=== PATIENT | male | born 1950 | race Caucasian/White ===

== ENCOUNTER 2017-03-21 05:42 | Emergency (ER) | payer MEDICARE, MEDICAID ==
[~2017-03-21] VITALS: Ht 182.9 cm; Wt 108.9 kg
[~2017-03-21 05:42] MED LIST: ADVAIR 500-501 EACH INH; ALBUTEROL SULF8.5 GM INH; AMLODIPINE BESYL5 MG ORAL; ASPIR 8181 MG; ASPIRIN EC81 MG ORAL; AZITHROMYCIN250 MG ORAL; BACTRIM DS TAB1 EAC1 ORAL; BENAZEPRIL HCL10 MG ORAL; CLINDAMYCIN HC300 MG ORAL; DITROPAN10 MG ORAL; FLUPHENAZIN5 MG/1 ML ORAL; FOLIC ACID1 MG ORAL; FUROSEMIDE40 MG ORAL; GLIMEPIRIDE1 MG ORAL; GLUCOPHAGE500 MG PO; IBUPROFEN200 MG ORAL; KLONOPIN0.5 MG ORAL; LATUDA80 MG PO; LEVOTHYROXINE25 MCG ORAL; LUVOX CR100 MG PO; METFORMIN HCL1000 M1 ORAL; METFORMIN HCL500 M1 ORAL; MIRALAX17 GM PO; NKM; OXYBUTYNIN CHLOR5 M2 PO; PAROXETINE HC12.5 MG ORAL; PAXIL10 MG ORAL; PRADAXA150 MG ORAL; PRO AIR HHN; PROMETHAZINE-D118 ML ORAL; QUETIAPINE FUMA25 MG ORAL; QVAR 80MCG ORA1 PUFF; QVAR7.3 GM INH; RANITIDINE HCL150 MG ORAL; SANTYL30 GM TOPIC; SANTYL30 GM TP; SEROQUEL XR200 MG ORAL; SEROQUEL100 MG ORAL; SEROQUEL200 MG ORAL; SILVADENE CREAM50 GM TOP; TOPIRAMATE25 MG PO; TRAMADOL HCL50 MG ORAL; TRAZODONE HCL100 MG PO; UNOBMED; ZOCOR20 MG ORAL
[2017-03-21 06:15] VITALS: BP 135/79
--- NOTE | 2017-03-21 06:23 | Emergency Room Report ---
History of Present Illness General Chief Complaint: Medication Refill Source: Patient Present Illness HPI Is a 66-year-old male with a history of schizophrenia multiple other medical problem including diabetes. He came in with chief complaint voices. He is taking Seroquel. He was just at [facility] 2 days ago for the same thing. Denies suicidal thoughts or homicidal thought. Nothing made it better nothing and nothing made it worse. No hallucination. Allergies: Coded Allergies: HALOPERIDOL (Verified Allergy, Intermediate, rash, 03/21/17) HALOPERIDOL LACTATE (Verified Allergy, Intermediate, rash, 03/21/17) MORPHINE (Verified Allergy, Intermediate, rash, 03/21/17) CEFTRIAXONE (Unverified Adverse Reaction, Unknown, 03/21/17) Pt stated having seizures Patient History Past Medical History: see triage record, old chart reviewed, DM, HTN, psych hx Past Surgical History: other Pertinent Family History: none Social History: Denies: smoking Immunizations: other Reviewed Nursing Documentation: PMH: Agreed, PSxH: Agreed Nursing Documentation-PMH Hx Cardiac Problems: Yes Hx Hypertension: Yes Hx Pacemaker: No Hx Asthma: No Hx COPD: Yes Hx Diabetes: Yes Hx Cancer: No Hx Gastrointestinal Problems: No Hx Dialysis: No Hx Neurological Problems: No Hx Cerebrovascular Accident: No Hx Seizures: No Review of Systems Eye: Denies: blurred vision, eye pain ENT: Denies: ear pain, nose congestion, throat swelling Respiratory: Denies: cough, shortness of breath Cardiovascular: Denies: chest pain, palpitations Gastrointestinal: Denies: abdominal pain, diarrhea, nausea, vomiting Musculoskeletal: Denies: back pain, joint pain Skin: Denies: rash Neurological: Denies: headache, numbness Endocrine: Denies: increased thirst, increased urine Hematologic/Lymphatic: Denies: easy bruising All Other Systems: negative except mentioned in HPI Physical Exam Vital Signs Date Time Temp Pulse Resp B/P Pulse Ox O2 Delivery O2 Flow Rate FiO2 03/21/17 06:13 97.5 71 16 142/81 99 Room Air vitals normal Sp02 EP Interpretation: reviewed, normal General Appearance: well appearing, no apparent distress, alert, obese Head: normocephalic, atraumatic Eyes: bilateral eye EOMI, bilateral eye PERRL ENT: hearing grossly normal, normal pharynx Neck: full range of motion, supple, no meningismus Respiratory: chest non-tender, lungs clear, normal breath sounds Cardiovascular #1: regular rate, rhythm, no murmur Gastrointestinal: normal bowel sounds, non tender, no mass, no organomegaly, no bruit, non-distended Musculoskeletal: back normal, normal range of motion, other - Patient in wheelchair Neurologic: alert, oriented x3 Psychiatric: mood/affect normal Skin: warm/dry Medical Decision Making Diagnostic Impression: Primary Impression: Schizophrenia Qualified Codes: F20.9 - Schizophrenia, unspecified ER Course Patient here with chief complaint of schizophrenia. He is stable at his baseline. No anterior for 5150. We'll discharge home. He's arty on Seroquel. He just at all his medication refill on March [address] [facility]. Last Vital Signs Date Time Temp Pulse Resp B/P Pulse Ox O2 Delivery O2 Flow Rate FiO2 03/21/17 06:13 97.5 71 16 142/81 99 Room Air Status: unchanged Disposition: HOME, SELF-CARE Condition: Stable Additional Instructions: Followup at mental health within a week. Return if symptom worsen. HAYDEE BEARD M.D. Mar 21, 2017 06:23
[2017-03-21 06:25] VITALS: BP 135/79
== END 2017-03-21 06:25 | disposition home or self-care (01) ==
LOC: EMR 06:23
DX: F20.9 Schizophrenia, unspecified (principal); I10 Essential (primary) hypertension; E11.9 Type 2 diabetes mellitus without complications; J44.9 Chronic obstructive pulmonary disease, unspecified
CPT/HCPCS: 99281

== ENCOUNTER 2017-08-03 16:41 | Inpatient (IN) | payer MEDICARE, MEDICAID ==
[~2017-08-03] VITALS: Ht 182.9 cm; Wt 95.7 kg
[2017-08-03] MEDS ORDERED: METFORMIN HCL500 M1 ORAL (17:00)
[2017-08-03] MEDS ORDERED: BENAZEPRIL HCL10 MG ORAL (17:00)
[2017-08-03] MEDS ORDERED: FOLIC ACID1 MG ORAL (17:00)
[2017-08-03] MEDS ORDERED: LEVOTHYROXINE25 MCG ORAL (17:00)
[2017-08-03] MEDS ORDERED: SIMVASTATIN20 MG ORAL (17:00)
[2017-08-03] MEDS ORDERED: ASPIRIN81 MG ORAL (17:00)
[2017-08-03] MEDS ORDERED: FUROSEMIDE40 MG ORAL (17:00)
[2017-08-03] MEDS ORDERED: AMLODIPINE BESYL5 MG ORAL (17:00)
--- NOTE | 2017-08-03 17:03 | Emergency Room Report ---
History of Present Illness General Chief Complaint: Wound Recheck/Suture Removal Source: Patient (Michaelle Batres) Present Illness HPI 67 YO Male presents to the ED from [facility] c/o 07/10 pain, swelling, and erythema of bilateral feet about dm foot ulcers progressive x 2 days. pt reports he normally has pain and open wounds but the past several days symptoms have significantly increased and erythema has evolved. pt. states he was seen by inspector canned food reconditioning today and told to go to the ED for evaluation. Pt. denies fevers, chills, trauma. pt. states he is ambulatory with a cane for short periods of time to get up and down stairs but primarily uses a wheelchair as all toes bilaterally have been amputated. pt. reports hx of DM, HTN, Schizophrenia and A-fib ( not on rate control medication, just ASA). Pt. also reports vertigo only when he lays flat x 4-5 days, denies CHARLES, trauma, neck pain , N/V. pt. reports fullness and pain in the right ear, otherwise denies recent URI. (Michaelle Batres) Allergies: Coded Allergies: HALOPERIDOL (Verified Allergy, Intermediate, rash, 03/21/17) HALOPERIDOL LACTATE (Verified Allergy, Intermediate, rash, 03/21/17) MORPHINE (Verified Allergy, Intermediate, rash, 03/21/17) CEFTRIAXONE (Unverified Adverse Reaction, Unknown, 03/21/17) Pt stated having seizures Patient History Past Medical History: see triage record, DM Past Surgical History: none Pertinent Family History: none Reviewed Nursing Documentation: PMH: Agreed, PSxH: Agreed (Michaelle Batres) Nursing Documentation-PMH Past Medical History: No History, Except For Hx Cardiac Problems: Yes Hx Hypertension: Yes Hx Pacemaker: No Hx Asthma: No Hx COPD: Yes Hx Diabetes: Yes Hx Cancer: No Hx Gastrointestinal Problems: No Hx Dialysis: No Hx Neurological Problems: No Hx Cerebrovascular Accident: No Hx Seizures: No (Michaelle Batres) Review of Systems All Other Systems: negative except mentioned in HPI (Michaelle Batres) Physical Exam Vital Signs Date Time Temp Pulse Resp B/P (MAP) Pulse Ox O2 Delivery O2 Flow Rate FiO2 08/03/17 16:46 97.9 96 18 114/61 98 Room Air Sp02 EP Interpretation: reviewed, normal General Appearance: no apparent distress, alert, GCS 15, non-toxic, Chronically Ill Eyes: bilateral eye normal inspection, bilateral eye PERRL, bilateral eye other - negative nystagmus ENT: hearing grossly normal, no angioedema, normal voice, other - cerumen impaction of the right canal Respiratory: chest non-tender, wheezing Cardiovascular #1: regular rate, rhythm, no edema, normal capillary refill Gastrointestinal: non tender, soft Musculoskeletal: inflammation - bilateral feet, erythema, increased temperature to palpation, other - bilateral amputation at the metatarsals , tender - bilateral plantar aspect and distal portion of feet. Neurologic: alert, oriented x3, responsive, motor strength/tone normal, sensory intact, speech normal, other - unable to illicit nystagmus Skin: warm/dry, palpation normal, well hydrated, other - bilateral plantar ulcers with surrounding erythema and increased temperature to palpation, the right plantar ulcer is 3x3cm and the left plantar ulcer is 2.5x2.5cm (Michaelle Batres P.AAna) Medical Decision Making PA Attestation Dr. Patel is my supervising Physician whom patient management has been discussed with. (Michaelle Batres P.AAna) Diagnostic Impression: Primary Impression: Diabetic ulcer of left foot Qualified Codes: E11.621 - Type 2 diabetes mellitus with foot ulcer; L97.423 - Non-pressure chronic ulcer of left heel and midfoot with necrosis of muscle Additional Impression: Diabetic foot ulcers Qualified Codes: E11.621 - Type 2 diabetes mellitus with foot ulcer; L97.515 - Non-pressure chronic ulcer of other part of right foot with muscle involvement without evidence of necrosis ER Course 67 YO Male presents [facility] the ED from [facility] c/o 07/10 pain, swelling, and erythema of bilateral feet about dm foot ulcers progressive x 2 days. pt reports he normally has pain and open wounds but the past several days symptoms have significantly increased and erythema has evolved. pt. states he was seen by inspector canned food reconditioning today and told to go to the ED for evaluation. Pt. denies fevers, chills, trauma. pt. states he is ambulatory with a cane for short periods of time to get up and down stairs but primarily uses a wheelchair as all toes bilaterally have been amputated. pt. reports hx of DM, HTN, Schizophrenia and A-fib ( not on rate control medication, just ASA). Pt. also reports vertigo only when he lays flat x 4-5 days, denies CHARLES, trauma, neck pain , N/V. pt. reports fullness and pain in the right ear, otherwise denies recent URI. Ddx considered but are not limited to cellulitis, osteomyelitis,, fracture, d/L , gout Vital signs: are WNL, pt. is afebrile H&PE are most consistent with cellulitis and hx of chronic DM foot ulcers suspicious for progression to osteomyelitis will do labs and imaging. Pt. has wheezes bilaterally. ORDERS: -CBC: no leukocytosis -CMP: unremarkable -Lactic Acid: WNL -Troponin: WNL- 0.00 -CK: WNL -CK-MB: WNL -ESR: elevated 48 -CRP : elevated 2.2 -Blood Cultures x 2: pending -PT/PTT: WNL - EK bpm, irreg-irreg- a-fib - no acute ST changes reviewed by Dr. Patel , his interpretation was scribed by JULISA Batres. - BILATERAL FOOT XRAYS, and CXR. ED INTERVENTIONS: -1mg Dilaudid IM -1 Liter NS - Albuterol HHN DISPOSITION: at this time pt. will be admitted to Dr. nakia Arguelles. bilateral cellulitis of DM foot ulcers. Dr. Arguelles agreed to admit the pt. and to continue pt. care management. Labs Test 08/03/17 18:08 White Blood Count 7.7 K/UL (4.8-10.8) Red Blood Count 4.70 M/UL (4.70-6.10) Hemoglobin 14.4 G/DL (14.2-18.0) Hematocrit 43.6 % (42.0-52.0) Mean Corpuscular Volume 93 FL (80-99) Mean Corpuscular Hemoglobin 30.7 PG (27.0-31.0) Mean Corpuscular Hemoglobin Concent 33.0 G/DL (32.0-36.0) Red Cell Distribution Width 12.9 % (11.6-14.8) Platelet Count 215 K/UL (150-450) Mean Platelet Volume 7.5 FL (6.5-10.1) Neutrophils (%) (Auto) 55.4 % (45.0-75.0) Lymphocytes (%) (Auto) 30.2 % (20.0-45.0) Monocytes (%) (Auto) 6.8 % (1.0-10.0) Eosinophils (%) (Auto) 6.0 % (0.0-3.0) Basophils (%) (Auto) 1.6 % (0.0-2.0) Erythrocyte Sedimentation Rate 48 MM/HR (0-20) Prothrombin Time 10.0 SEC (9.30-11.50) Prothromb Time International Ratio 1.0 (0.9-1.1) Activated Partial Thromboplast Time 31 SEC (23-33) Sodium Level 143 MMOL/L (136-145) Potassium Level 4.0 MMOL/L (3.5-5.1) Chloride Level 103 MMOL/L (98-107) Carbon Dioxide Level 29 MMOL/L (21-32) Anion Gap 11 mmol/L (5-15) Blood Urea Nitrogen 18 mg/dL (7-18) Creatinine 1.1 MG/DL (0.55-1.30) Estimat Glomerular Filtration Rate > 60 mL/min (>60) Glucose Level 114 MG/DL (74-106) Lactic Acid Level 0.80 mmol/L (0.66-2.22) Calcium Level 9.2 MG/DL (8.5-10.1) Total Bilirubin 0.5 MG/DL (0.2-1.0) Aspartate Amino Transf (AST/SGOT) 22 U/L (15-37) Alanine Aminotransferase (ALT/SGPT) 21 U/L (12-78) Alkaline Phosphatase 93 U/L (46-116) Total Creatine Kinase 45 U/L (26-308) Creatine Kinase MB 0.5 NG/ML (0.0-3.6) Creatine Kinase MB Relative Index 1.1 Troponin I 0.000 ng/mL (0.000-0.056) C-Reactive Protein, Quantitative 2.2 mg/dL (0.00-0.90) Total Protein 8.0 G/DL (6.4-8.2) Albumin 3.6 G/DL (3.4-5.0) Globulin 4.4 g/dL Albumin/Globulin Ratio 0.8 (1.0-2.7) (Michaelle Batres P.A.) ER Course I agree with the above assessment and plan fo admission. Doubt gas in ST is gangrene, but needs IV antibiotics and repeat evaluation and observation. (Erick Patel M.D.) EKG Diagnostic Results Rate: normal - 91 bpm Rhythm: other - a-fib ST Segments: no acute changes ASA given to the pt in ED: No PA Scribe Text - EK bpm, irreg-irreg- a-fib - no acute ST changes reviewed by Dr. Patel , his interpretation was scribed by JULISA Batres. (Michaelle Batres P.A.) Chest X-Ray Diagnostic Results Chest X-Ray Diagnostic Results : Chest X-Ray Ordered: Yes # of Views/Limited/Complete: 1 View Indication: Shortness of Breath EP Interpretation: Yes PA Xray: Interpretation reviewed, by supervising MD, and agrees with findings. Interpretation: no consolidation, no effusion, no pneumothorax Impression: No acute disease - increased interstitial markings otherwise normal Electronically Signed by: Michaelle Humphrey PA-C P.AAna) Chest X-Ray Diagnostic Results : Electronically Signed by: X ray reviewed by ut Erick Patel MD (Erick Patel M.D.) Other X-Ray Diagnostic Results Other X-Ray Diagnostic Results #1: X-Ray ordered: Right foot # of Views/Limited Vs Complete: 3 View Indication: Pain EP Interpretation: Yes PA Xray: Interpretation reviewed, by supervising MD, and agrees with findings. Interpretation: no dislocation, no soft tissue swelling, no fractures Impression: Other - subcutaneous gas noted, digits are surgically absent. Electronically Signed by: Michaelle Batres PA-C Other X-Ray Diagnostic Results #2: X-Ray ordered: Left Foot # of Views/Limited Vs Complete: 3 View Indication: Pain EP Interpretation: Yes PA Xray: Interpretation reviewed, by supervising MD, and agrees with findings. Interpretation: no dislocation, no soft tissue swelling, no fractures Impression: Other - subcutaneous gas noted, digits are surgically absent. Electronically Signed by: Michaelle Batres PA-C (Michaelle aBtres P.A.) Other X-Ray Diagnostic Results : Electronically Signed by: Both x-rays reviewed by me. Erick Patel MD (Erick Patel M.D.) Last Vital Signs Date Time Temp Pulse Resp B/P (MAP) Pulse Ox O2 Delivery O2 Flow Rate FiO2 08/03/17 16:46 97.9 96 18 114/61 98 Room Air (Michaelle Batres) Status: improved (Erick Patel M.D.) Disposition: ADMITTED INPATIENT Condition: Serious Michaelle Batres Aug 03, 2017 17:03 Erick Patel M.D. Aug 05, 2017 14:24
[2017-08-03 17:05] VITALS: BP 144/87
[2017-08-03] MEDS ORDERED: HYDROmorphone 1mg/ml Carpuject IM ONE (17:45)
[2017-08-03] MEDS ORDERED: QUETIAPINE FUMA50 MG ORAL (17:54)
[2017-08-03] MEDS ORDERED: CRESTOR20 MG ORAL (17:54)
[2017-08-03] MEDS ORDERED: Vancomycin 1.5gm/D5W 250ml 250 ML IVPB ONE (18:00)
[2017-08-03] MEDS ORDERED: IBUPROFEN600 MG ORAL (18:18)
[2017-08-03 18:30] VITALS: BP 126/71
[2017-08-03 18:53] LABS: BASOPHILS % (AUTO) 1.6 % (0.0-2.0); HEMATOCRIT 43.6 % (42.0-52.0); HEMOGLOBIN 14.4 G/DL (14.2-18.0); LYMPHOCYTES % (AUTO) 30.2 % (20.0-45.0); MEAN CORPUSCULAR VOLUME 93 FL (80-99); MONOCYTES % (AUTO) 6.8 % (1.0-10.0); NEUTROPHILS % (AUTO) 55.4 % (45.0-75.0); PLATELET COUNT 215 K/UL (150-450); RED CELL DISTRIBUTION WIDTH 12.9 % (11.6-14.8); WHITE BLOOD COUNT 7.7 K/UL (4.8-10.8)
[2017-08-03 19:14] LABS: ALANINE AMINOTRANSFERASE 21 U/L (12-78); ALBUMIN 3.6 G/DL (3.4-5.0); ALBUMIN/GLOBULIN RATIO 0.8 (1.0-2.7); ALKALINE PHOSPHATASE 93 U/L (46-116); ANION GAP 11 mmol/L (5-15); ASPARTATE AMINO TRANSFERASE 22 U/L (15-37); BILIRUBIN,TOTAL 0.5 MG/DL (0.2-1.0); BLOOD UREA NITROGEN 18 mg/dL (7-18); CALCIUM 9.2 MG/DL (8.5-10.1); CARBON DIOXIDE 29 MMOL/L (21-32); CHLORIDE 103 MMOL/L (98-107); CREATININE 1.1 MG/DL (0.55-1.30); SODIUM 143 MMOL/L (136-145)
[2017-08-03 19:15] LABS: CKMB 0.5 NG/ML (0.0-3.6); CREATINE KINASE 45 U/L (26-308)
[2017-08-03] MEDS ORDERED: Albuterol ud Inhalation HHN ONE (19:30)
[2017-08-03] MEDS ORDERED: Tetanus/Diptheria/Pertussis Vaccine 0.5ml Syr IM ONE (19:30)
[2017-08-03 20:00] VITALS: BP 122/74
[2017-08-03 21:00] VITALS: BP 126/70
[2017-08-03 21:07] LABS: APPEARANCE,URINE CLEAR; BILIRUBIN, URINE NEGATIVE (NEGATIVE); GLUCOSE, URINE (UA) NEGATIVE (NEGATIVE); KETONES,URINE NEGATIVE (NEGATIVE); LEUKOCYTE ESTERASE ,URINE NEGATIVE (NEGATIVE); NITRITE,URINE NEGATIVE (NEGATIVE); PH,URINE 6.5 (4.5-8.0); PROTEIN,URINE 2+ (NEGATIVE); UROBILINOGEN,URINE 1 MG/DL (0.0-1.0)
[2017-08-03 21:14] LABS: COLOR,URINE YELLOW
[2017-08-03 21:30] VITALS: BP 143/77
[2017-08-03] MEDS ORDERED: Docusate 100mg cap ORAL PRN (22:30)
[2017-08-03] MEDS ORDERED: Norco 5mg/325mg tab ORAL PRN (22:30)
[2017-08-03] MEDS ORDERED: HYDROmorphone 1mg/ml Carpuject IVP PRN (22:30)
[2017-08-03] MEDS ORDERED: Acetaminophen 500mg (ES) tab ORAL PRN (22:30)
[2017-08-03] MEDS ORDERED: SEROQUEL400 MG ORAL (22:54)
[2017-08-03] MEDS ORDERED: Vancomycin 1500mg IVPB SCH (23:00)
[2017-08-04] MEDS ORDERED: metFORMIN 500mg tab ORAL SCH (06:30)
[2017-08-04] MEDS ORDERED: Levothyroxine 25mcg tab ORAL SCH (06:30)
[2017-08-04] MEDS ORDERED: NovoLOG Insulin Flexpen SUBQ SCH (06:30)
[2017-08-04] MEDS ORDERED: Heparin 5000 units/ml inj SUBQ SCH (09:00)
[2017-08-04] MEDS ORDERED: Furosemide 40mg tab ORAL SCH (09:00)
--- NOTE | 2017-08-04 09:20 | Diagnostic Imaging Report ---
Indication: CP Technique: XRAY CHEST 1 V Comparison:12/09/14 Findings: Previous study an area of decreased markings is again seen in the right upper lobe. The heart is normal in size. No acute pulmonary infiltrates are identified. There is no pleural fluid. The bones are unremarkable. Impression: Decreased markings in the right upper lobe. The possibility of bullous change in this area is not excluded. Otherwise negative. No acute abnormality.
--- NOTE | 2017-08-04 09:21 | Diagnostic Imaging Report ---
Indication: PAIN Technique: XRAY FOOT MIN 3V RIGHT Comparison: None. Findings: There has been amputation through the mid foot. A plantar ulcer is noted. No definite bone destruction to suggest osteomyelitis. Impression: Previous amputation of the foot through the midfoot. Plantar ulcer. No definite evidence of osteomyelitis.
--- NOTE | 2017-08-04 09:22 | Diagnostic Imaging Report ---
Indication: PAIN Technique: XRAY FOOT MIN 3V LEFT Comparison: None. Findings: There has been previous transmetatarsal amputation. There appears to be a plantar ulcer. No bone destruction to suggest osteomyelitis. The remainder the exam is unremarkable. Impression: Previous transmetatarsal amputation. Plantar soft tissue ulcer. No definite osteomyelitis.
--- NOTE | 2017-08-04 14:40 | Cardiology Report ---
APPROVED REPORT EKG Measurement Heart [id number] Atrial fibrillation Abnormal ECG
--- NOTE | 2017-08-04 14:40 | Cardiology Report ---
APPROVED REPORT EKG Measurement Heart [id number] Atrial fibrillation Abnormal ECG
--- NOTE | 2017-08-04 14:40 | Cardiology Report ---
APPROVED REPORT EKG Measurement Heart [id number] Atrial fibrillation Abnormal ECG
[2017-08-04] MEDS ORDERED: QUEtiapine 200mg tab ORAL SCH (21:00)
--- NOTE | 2017-08-07 00:30 | Discharge Summary 2 SIG ---
DATE OF ADMISSION: 08/03/2017 DATE OF SIGNING AGAINST MEDICAL ADVISE : 08/04/2017 REASON FOR ADMISSION: 67-year-old male, presented to emergency room from [facility]. The patient complained of 10/10 pain, swelling, and erythema of bilateral feet. The patient has bilateral feet diabetic foot ulcers. Pain was worse for the past two days. The patient normally had pain and wounds are chronic, but for the past several days, symptoms significantly increased, involving erythema. The patient was seen by thermometer maker prior to presentation to ED and was recommended to go to emergency department for further evaluation. The patient denied fever, chills, or trauma. The patient reported being ambulatory with a cane for a short period of time to get up and go stairs, but primarily using a wheelchair as he has all toes bilaterally amputated. The patient reported history of diabetes, hypertension, schizophrenia, and atrial fibrillation. Workup in the emergency room essentially was stable. Laboratory workup revealed elevated ESR- 48 and elevated CRP -2.2. Chest x-ray was negative for any acute cardiopulmonary pathology. Vital signs were stable. The patient admitted for further management with diagnosis of diabetic ulcer of left foot. HOSPITAL STAY: The patient was admitted to medical/surgical floor. The patient was started on empiric antibiotics. Home medications were resumed. DVT prophylaxis was provided. Blood pressure was managed with calcium-channel amna, CHILO inhibitor, and was stable. Blood sugar was managed with metformin and sliding scale of insulin as needed. Pain management was provided. Bowel regimen was instituted. The next day, the patient decided to leave against medical advice. The risks and consequences of signing against medical advice were discussed with the patient. The patient was insisted on signing the paper and left. FINAL DIAGNOSES: 1. Diabetic ulcer, left foot. 2. Diabetes. 3. Schizophrenia. Candace Christine M.D. I have been assigned to dictate discharge summary on this account and I was not involved in the patient's management. Brisa Reed ([facility] N.PnAa DR: Priyank JOB#: [id number] CC: FRANCISCO JAVIER
--- NOTE | 2017-08-07 00:30 | Discharge Summary 2 SIG ---
DATE OF ADMISSION: 08/03/2017 DATE OF SIGNING AGAINST MEDICAL ADVISE : 08/04/2017 REASON FOR ADMISSION: 67-year-old male, presented to emergency room from [facility]. The patient complained of 10/10 pain, swelling, and erythema of bilateral feet. The patient has bilateral feet diabetic foot ulcers. Pain was worse for the past two days. The patient normally had pain and wounds are chronic, but for the past several days, symptoms significantly increased, involving erythema. The patient was seen by runner man prior to presentation to ED and was recommended to go to emergency department for further evaluation. The patient denied fever, chills, or trauma. The patient reported being ambulatory with a cane for a short period of time to get up and go stairs, but primarily using a wheelchair as he has all toes bilaterally amputated. The patient reported history of diabetes, hypertension, schizophrenia, and atrial fibrillation. Workup in the emergency room essentially was stable. Laboratory workup revealed elevated ESR- 48 and elevated CRP -2.2. Chest x-ray was negative for any acute cardiopulmonary pathology. Vital signs were stable. The patient admitted for further management with diagnosis of diabetic ulcer of left foot. HOSPITAL STAY: The patient was admitted to medical/surgical floor. The patient was started on empiric antibiotics. Home medications were resumed. DVT prophylaxis was provided. Blood pressure was managed with calcium-channel amna, CHILO inhibitor, and was stable. Blood sugar was managed with metformin and sliding scale of insulin as needed. Pain management was provided. Bowel regimen was instituted. The next day, the patient decided to leave against medical advice. The risks and consequences of signing against medical advice were discussed with the patient. The patient was insisted on signing the paper and left. FINAL DIAGNOSES: 1. Diabetic ulcer, left foot. 2. Diabetes. 3. Schizophrenia. Candace Christine M.D. I have been assigned to dictate discharge summary on this account and I was not involved in the patient's management. Brisa Reed ([facility] N.PAna [facility]: Priyank JOB#: [id number] CC: FRANCISCO JAVIER
--- NOTE | 2017-08-07 00:30 | Discharge Summary 2 SIG ---
DATE OF ADMISSION: 08/03/2017 DATE OF SIGNING AGAINST MEDICAL ADVISE : 08/04/2017 REASON FOR ADMISSION: 67-year-old male, presented to emergency room from [facility]. The patient complained of 10/10 pain, swelling, and erythema of bilateral feet. The patient has bilateral feet diabetic foot ulcers. Pain was worse for the past two days. The patient normally had pain and wounds are chronic, but for the past several days, symptoms significantly increased, involving erythema. The patient was seen by instructor creeler prior to presentation to ED and was recommended to go to emergency department for further evaluation. The patient denied fever, chills, or trauma. The patient reported being ambulatory with a cane for a short period of time to get up and go stairs, but primarily using a wheelchair as he has all toes bilaterally amputated. The patient reported history of diabetes, hypertension, schizophrenia, and atrial fibrillation. Workup in the emergency room essentially was stable. Laboratory workup revealed elevated ESR- 48 and elevated CRP -2.2. Chest x-ray was negative for any acute cardiopulmonary pathology. Vital signs were stable. The patient admitted for further management with diagnosis of diabetic ulcer of left foot. HOSPITAL STAY: The patient was admitted to medical/surgical floor. The patient was started on empiric antibiotics. Home medications were resumed. DVT prophylaxis was provided. Blood pressure was managed with calcium-channel amna, CHILO inhibitor, and was stable. Blood sugar was managed with metformin and sliding scale of insulin as needed. Pain management was provided. Bowel regimen was instituted. The next day, the patient decided to leave against medical advice. The risks and consequences of signing against medical advice were discussed with the patient. The patient was insisted on signing the paper and left. FINAL DIAGNOSES: 1. Diabetic ulcer, left foot. 2. Diabetes. 3. Schizophrenia. Candace Christine M.D. I have been assigned to dictate discharge summary on this account and I was not involved in the patient's management. Brisa Reed ([facility] N.PAna DR: Priyank JOB#: [id number] CC: FRANCISCO JAVIER
== END 2017-08-04 03:30 | disposition left against medical advice (07) | DRG 639 ==
LOC: EMR 17:05 → EDBEDREQ 17:36 → 4E 17:55 → ENRESERV 18:00 → EDBEDREQ 19:38
DX: E11.621 Type 2 diabetes mellitus with foot ulcer (principal); L97.529 Non-pressure chronic ulcer of other part of left foot with unspecified severity; I48.91 Unspecified atrial fibrillation; F20.9 Schizophrenia, unspecified; Z89.429 Acquired absence of other toe(s), unspecified side; Z88.6 Allergy status to analgesic agent; Z88.1 Allergy status to other antibiotic agents; Z88.8 Allergy status to other drugs, medicaments and biological substances; I10 Essential (primary) hypertension; Z23 Encounter for immunization
CPT/HCPCS: 36415; 71010; 80053; 81003; 82550; 82553; 82962; 83605; 84484; 85025; 85610; 85651; 85730; 86140; 87040; 87070; 87081; 87181; 87205; 90471; 90714; 90715; 93005; 94640; 94664; 99285; J1815

== ENCOUNTER 2017-09-26 17:12 | Emergency (ER) | payer MEDICARE, MEDICAID ==
[~2017-09-26] VITALS: Ht 182.9 cm; Wt 95.7 kg
[~2017-09-26 17:12] MED LIST changes: +ASPIRIN81 MG ORAL; +CRESTOR20 MG ORAL; +IBUPROFEN600 MG ORAL; +QUETIAPINE FUMA50 MG ORAL; +SEROQUEL400 MG ORAL; +SIMVASTATIN20 MG ORAL
[2017-09-26 17:46] VITALS: BP 118/71
[2017-09-26] MEDS ORDERED: Norco 5mg/325mg tab ORAL ONE (19:00)
[2017-09-26] MEDS ORDERED: Clindamycin 150mg cap ORAL ONE (19:00)
[2017-09-26 19:45] VITALS: BP 118/71
[2017-09-26] MEDS ORDERED: ACETAMINOPHEN-1 EAC1 ORAL (19:47)
[2017-09-26] MEDS ORDERED: CLINDAMYCIN HC300 MG ORAL (19:47)
--- NOTE | 2017-09-26 20:59 | Emergency Room Report ---
History of Present Illness General Chief Complaint: General Complaint Source: Patient Present Illness HPI The patient is a 67-year-old male with a history of diabetes presenting for foot ulcers. The patient lives in an assisted living facility. He brought himself here via bus. He states that he has had bilateral partial foot amputation this due to uncontrolled diabetes. He states that he has had ulcers to the bottoms of his feet for months. He states that he was afraid to have them looked at or treated. he has pain described as a 3/10 dull ache. Worse with walking. He does have a wheelchair to ambulate but states that he also occasionally walks. He denies any other symptoms including fever or chills Allergies: Coded Allergies: HALOPERIDOL (Verified Allergy, Intermediate, rash, 03/21/17) HALOPERIDOL LACTATE (Verified Allergy, Intermediate, rash, 03/21/17) MORPHINE (Verified Allergy, Intermediate, rash, 03/21/17) CEFTRIAXONE (Unverified Adverse Reaction, Unknown, 03/21/17) Pt stated having seizures Patient History Past Medical History: see triage record Pertinent Family History: none Reviewed Nursing Documentation: PMH: Agreed, PSxH: Agreed Nursing Documentation-PMH Hx Cardiac Problems: Yes Hx Hypertension: Yes Hx Pacemaker: No Hx Asthma: No Hx COPD: Yes Hx Diabetes: Yes Hx Cancer: No Hx Gastrointestinal Problems: Yes Hx Dialysis: No Hx Neurological Problems: No Hx Cerebrovascular Accident: No Hx Seizures: No Review of Systems All Other Systems: negative except mentioned in HPI Physical Exam Vital Signs Date Time Temp Pulse Resp B/P (MAP) Pulse Ox O2 Delivery O2 Flow Rate FiO2 09/26/17 17:22 97.5 106 18 118/71 95 Room Air Sp02 EP Interpretation: reviewed, normal General Appearance: no apparent distress, alert, GCS 15, non-toxic Head: normocephalic, atraumatic Eyes: bilateral eye normal inspection, bilateral eye PERRL Musculoskeletal: back normal, gait/station normal, normal range of motion, tender - bilat plantar surfaces of feet Neurologic: alert, oriented x3, responsive, motor strength/tone normal, sensory intact, speech normal Psychiatric: judgement/insight normal, memory normal, mood/affect normal, no suicidal/homicidal ideation Skin: other - There is bilateral circular ulcer of the plantar surfaces of the feet. There is a clear discharge. No surrounding erythema Lymphatic: no adenopathy Medical Decision Making PA Attestation Dr. Zamora is my supervising physician. Patient management was discussed with my supervising physician Diagnostic Impression: Primary Impression: Diabetic foot ulcers ER Course The patient is a 67-year-old male with a history of diabetes presenting for foot ulcers. Differential diagnosis considered not limited to: Diabetic ulcer, cellulitis, wound infection, among others PE: afebrile. NAD There is bilateral circular ulcer of the plantar surfaces of the feet. There is a clear discharge. No surrounding erythema There is bilateral distal foot amputation The wounds are cleaned with normal saline and Betadine. Dressing applied The patient is discharged with prescription for antibiotics and will need to follow up with primary doctor. He was told to she will need wound care. He agrees Last Vital Signs Date Time Temp Pulse Resp B/P (MAP) Pulse Ox O2 Delivery O2 Flow Rate FiO2 09/26/17 17:46 97.5 18 118/71 95 Room Air 09/26/17 17:22 106 Status: improved Disposition: ASSISTED LIVING Condition: Improved Scripts Clindamycin Hcl (CLINDAMYCIN HCL) 300 Mg Capsule 300 MG ORAL TID, #21 CAP Prov: PIEDAD LARRY.A. 09/26/17 Acetaminophen With Codeine (T#3) (TYLENOL #3 TAB*) Y Tab 1 TAB ORAL Q6HR Y for For Pain, #10 TAB Prov: PIEDAD LARRY.A. 09/26/17 Referrals: NOT CHOSEN IPA/MD,REFERRING (PCP) Patient Instructions: Diabetes and Foot Care Additional Instructions: I discussed my findings with the patient. All questions and concerns have been answered. Treatment and medication compliance have been addressed. I advised the patient that they need to follow up with PMD in 3-5 days. Return to ED if symptoms worsen, new symptoms arise, or if needed for any reason. Patient verbalized understanding of discharge instructions. PIEDAD LARRY Sep 26, 2017 20:59
== END 2017-09-26 19:45 | disposition home or self-care (01) ==
LOC: EMR 18:21
DX: E11.621 Type 2 diabetes mellitus with foot ulcer (principal); I10 Essential (primary) hypertension; J44.9 Chronic obstructive pulmonary disease, unspecified
CPT/HCPCS: 99283

== ENCOUNTER 2018-01-06 17:34 | Emergency (ER) | payer MEDICARE, OTHER ==
[~2018-01-06] VITALS: Ht 182.9 cm; Wt 96.2 kg
[~2018-01-06 17:34] MED LIST changes: +ACETAMINOPHEN-1 EAC1 ORAL
[2018-01-06] MEDS ORDERED: Vancomycin 1 GM in D5W 275 ML IVPB ONE (19:00)
[2018-01-06 19:57] LABS: BASOPHILS % (AUTO) 1.4 % (0.0-2.0); EOSINOPHILS % (AUTO) 3.7 % (0.0-3.0); HEMATOCRIT 44.2 % (42.0-52.0); HEMOGLOBIN 14.5 G/DL (14.2-18.0); LYMPHOCYTES % (AUTO) 28.1 % (20.0-45.0); MEAN CORPUSCULAR VOLUME 90 FL (80-99); NEUTROPHILS % (AUTO) 57.8 % (45.0-75.0); PLATELET COUNT 195 K/UL (150-450); RED BLOOD COUNT 4.93 M/UL (4.70-6.10); RED CELL DISTRIBUTION WIDTH 12.4 % (11.6-14.8); WHITE BLOOD COUNT 8.4 K/UL (4.8-10.8)
[2018-01-06 20:07] LABS: ANION GAP 8 mmol/L (5-15); BLOOD UREA NITROGEN 33 mg/dL (7-18); CARBON DIOXIDE 30 MMOL/L (21-32); CHLORIDE 107 MMOL/L (98-107); CREATININE 1.4 MG/DL (0.55-1.30); POTASSIUM 4.7 MMOL/L (3.5-5.1); SODIUM 144 MMOL/L (136-145)
[2018-01-06 20:21] LABS: ALANINE AMINOTRANSFERASE 17 U/L (12-78); ALBUMIN 3.4 G/DL (3.4-5.0); ALBUMIN/GLOBULIN RATIO 0.8 (1.0-2.7); ALKALINE PHOSPHATASE 95 U/L (46-116); ASPARTATE AMINO TRANSFERASE 17 U/L (15-37); BILIRUBIN,TOTAL 0.3 MG/DL (0.2-1.0); CREATINE KINASE 48 U/L (26-308)
--- NOTE | 2018-01-06 20:37 | Emergency Room Report ---
History of Present Illness General Chief Complaint: Behavioral Complaint Present Illness HPI 67-year-old male presents to the emergency department complaining of 8 out of 10 in severity bilateral foot pain secondary to diabetic ulcers. Patient was triaged with complaining of hearing voices he states that he is not hearing voices. Patient states that he was worried that his thoughts of having the rest of his feet amputated were considered suicidal. Patient states that he does not know whether or not I would be considered thoughts of hurting himself. Patient states that he is tired of the pain in his bilateral feet and constant leaking from the ulcers. Patient states that he believes his ulcers are getting worse. He denies fevers, chills, trauma or fall. Patient states he usually gets around by wheelchair. Patient states that he does have a auto suspension and steering mechanic that he has an appointment with next week. Patient reports history of schizophrenia, diabetes,A-fib, high blood pressure, bronchitis and that he is a current smoker. Denies CP, Palpitations, LOC, AMS, dizziness, Acute significant changes in vision, , or a sudden severe headache. Patient states that he takes 800 mg ibuprofen regularly for management of his pain Allergies: Coded Allergies: HALOPERIDOL (Verified Allergy, Intermediate, rash, 03/21/17) HALOPERIDOL LACTATE (Verified Allergy, Intermediate, rash, 03/21/17) MORPHINE (Verified Allergy, Intermediate, rash, 03/21/17) CEFTRIAXONE (Unverified Adverse Reaction, Unknown, 03/21/17) Pt stated having seizures Patient History Past Medical History: see triage record, DM, HTN, other - AFib Past Surgical History: none Pertinent Family History: none Reviewed Nursing Documentation: PMH: Agreed; PSxH: Agreed Nursing Documentation-PMH Hx Cardiac Problems: Yes Hx Hypertension: Yes Hx Pacemaker: No Hx Asthma: No Hx COPD: Yes Hx Diabetes: Yes Hx Cancer: No Hx Gastrointestinal Problems: Yes Hx Dialysis: No History Of Psychiatric Problem: Yes - SCHIZOPHRENIA Hx Neurological Problems: No Hx Cerebrovascular Accident: No Hx Seizures: No Review of Systems All Other Systems: negative except mentioned in HPI Physical Exam Vital Signs Date Time Temp Pulse Resp B/P (MAP) Pulse Ox O2 Delivery O2 Flow Rate FiO2 01/06/18 18:14 98.0 105 18 111/73 96 Room Air 98.1 General Appearance: no apparent distress, alert, GCS 15, non-toxic, Chronically Ill Head: normocephalic ENT: hearing grossly normal, normal voice Respiratory: normal breath sounds, no rhonchi, no respiratory distress, no wheezing Cardiovascular #1: irregularly irregular Cardiovascular #2: 2+ dorsalis pedis (R) - Tibialis is palpated. , 2+ dorsalis pedis (L) - Tibialis is palpated. Gastrointestinal: non tender, soft, no guarding Musculoskeletal: non-tender, no calf tenderness, other - toes are amputated bilaterally. , tender - TTP to the distal plantar aspect of bilateral feet. RLE ulcer is approximately 3cm in diameter and is down to the subcutaneous tissues. the LLE ulcer is also approximately 3cm in diameter and is down to the subcutaneous tissues Neurologic: normal inspection, alert, oriented x3, responsive, motor strength/ tone normal, grossly normal Psychiatric: judgement/insight normal, mood/affect normal, no suicidal/ homicidal ideation, no delusions Skin: warm/dry, well hydrated, other - TTP to the distal plantar aspect of bilateral feet. RLE ulcer is approximately 3cm in diameter and is down to the subcutaneous tissues. the LLE ulcer is also approximately 3cm in diameter and is down to the subcutaneous tissues Medical Decision Making PA Attestation Dr. Zmaora is my supervising Physician whom patient management has been discussed with. Diagnostic Impression: Primary Impression: Diabetic foot ulcers Qualified Codes: E11.621 - Type 2 diabetes mellitus with foot ulcer; L97.512 - Non-pressure chronic ulcer of other part of right foot with fat layer exposed Additional Impressions: Diabetic ulcer of left foot Qualified Codes: E11.621 - Type 2 diabetes mellitus with foot ulcer; L97.522 - Non-pressure chronic ulcer of other part of left foot with fat layer exposed A-fib Qualified Codes: I48.2 - Chronic atrial fibrillation ER Course 67-year-old male presents to the emergency department complaining of 8 out of 10 in severity bilateral foot pain secondary to diabetic ulcers. Patient was triaged with complaining of hearing voices he states that he is not hearing voices. Patient states that he was worried that his thoughts of having the rest of his feet amputated were considered suicidal. Patient states that he does not know whether or not I would be considered thoughts of hurting himself. Patient states that he is tired of the pain in his bilateral feet and constant leaking from the ulcers. Patient states that he believes his ulcers are getting worse. He denies fevers, chills, trauma or fall. Patient states he usually gets around by wheelchair. Patient states that he does have a auto suspension and steering mechanic that he has an appointment with next week. Patient reports history of schizophrenia, diabetes,A-fib, high blood pressure, bronchitis and that he is a current smoker. Denies CP, Palpitations, LOC, AMS, dizziness, Acute significant changes in vision, , or a sudden severe headache. Patient states that he takes 800 mg ibuprofen regularly for management of his pain Ddx considered but are not limited to cellulitis, fistula, decubitus ulcer, gangrene, necrotizing fasciitis just to name a few. Vital signs: are WNL, pt. is afebrile H&PE are most consistent with Diabetic Foot Ulcers.-- Patient has partial amputation of the bilateral feet. All toes have been amputated. -Review of previous wound culture was positive for MRSA ORDERS: -CBC, CMP: elevated Cr 1.4, BUN 33, l -Lactic Acid of 3.5 -Troponin, CK: WNL -Blood cultures: Pending ED INTERVENTIONS: - Tylenol PO -IV access is established 1g vancomycin IV -1 L NS Bolus DISPOSITION: at this time pt. will be admitted to Dr. Parekh for Diabetic Foot Ulcers. Dr. Parekh agreed to admit the pt. and to continue pt. care management. --DISPOSITION: - At this time the patient is requesting to leave AGAINST MEDICAL ADVICE. I believe that this patient has the capacity to make decisions on His own. I discussed with the patient the risks of leaving AMA. Some of these risks include delay in diagnosis and treatment, as well as worsening of symptoms, organ damage, and permanent disability , loss of limb or even . After discussing these risks with the patient. He continues to express His want to leave AGAINST MEDICAL ADVICE. I encouraged the patient to return at any time, and that he will be welcome here in the emergency department to continue medical management. Labs Test 01/06/18 19:19 White Blood Count 8.4 K/UL (4.8-10.8) Red Blood Count 4.93 M/UL (4.70-6.10) Hemoglobin 14.5 G/DL (14.2-18.0) Hematocrit 44.2 % (42.0-52.0) Mean Corpuscular Volume 90 FL (80-99) Mean Corpuscular Hemoglobin 29.4 PG (27.0-31.0) Mean Corpuscular Hemoglobin Concent 32.8 G/DL (32.0-36.0) Red Cell Distribution Width 12.4 % (11.6-14.8) Platelet Count 195 K/UL (150-450) Mean Platelet Volume 7.6 FL (6.5-10.1) Neutrophils (%) (Auto) 57.8 % (45.0-75.0) Lymphocytes (%) (Auto) 28.1 % (20.0-45.0) Monocytes (%) (Auto) 9.0 % (1.0-10.0) Eosinophils (%) (Auto) 3.7 % (0.0-3.0) Basophils (%) (Auto) 1.4 % (0.0-2.0) Sodium Level 144 MMOL/L (136-145) Potassium Level 4.7 MMOL/L (3.5-5.1) Chloride Level 107 MMOL/L (98-107) Carbon Dioxide Level 30 MMOL/L (21-32) Anion Gap 8 mmol/L (5-15) Blood Urea Nitrogen 33 mg/dL (7-18) Creatinine 1.4 MG/DL (0.55-1.30) Estimat Glomerular Filtration Rate 50.7 mL/min (>60) Glucose Level 109 MG/DL (74-106) Lactic Acid Level 3.10 mmol/L (0.66-2.22) Calcium Level 9.0 MG/DL (8.5-10.1) Total Bilirubin 0.3 MG/DL (0.2-1.0) Aspartate Amino Transf (AST/SGOT) 17 U/L (15-37) Alanine Aminotransferase (ALT/SGPT) 17 U/L (12-78) Alkaline Phosphatase 95 U/L (46-116) Total Creatine Kinase 48 U/L (26-308) Troponin I 0.000 ng/mL (0.000-0.056) Total Protein 7.5 G/DL (6.4-8.2) Albumin 3.4 G/DL (3.4-5.0) Globulin 4.1 g/dL Albumin/Globulin Ratio 0.8 (1.0-2.7) EKG Diagnostic Results EP Interpretation: Dr. Zamora Rate: normal Rhythm: other - A-Fib ST Segments: no acute changes ASA given to the pt in ED: No - pt. takes ASA daily PA Scribe Text Patient has atrial fibrillation with a normal rate. Other X-Ray Diagnostic Results Other X-Ray Diagnostic Results #1: X-Ray ordered: Left Foot # of Views/Limited Vs Complete: 3 View Indication: Pain EP Interpretation: Yes PA Xray: Interpretation reviewed, by supervising MD, and agrees with findings. Interpretation: no dislocation, no soft tissue swelling, no fractures, other - Plantar ulcer noted, no obvious evidence of bone destruction. Impression: Other - Abnormal: Plantar ulcer noted, no obvious evidence of bone destruction. Electronically Signed by: Michaelle Batres PA-C Other X-Ray Diagnostic Results #2: X-Ray ordered: Right Foot # of Views/Limited Vs Complete: 3 View Indication: Pain EP Interpretation: Yes PA Xray: Interpretation reviewed, by supervising MD, and agrees with findings. Interpretation: no dislocation, no soft tissue swelling, no fractures, other - Plantar ulcer noted, no obvious evidence of bone destruction. Impression: Other - Abnormal: Plantar ulcer noted, no obvious evidence of bone destruction. Electronically Signed by: Michaelle Batres PA-C Last Vital Signs Date Time Temp Pulse Resp B/P (MAP) Pulse Ox O2 Delivery O2 Flow Rate FiO2 01/06/18 18:14 98.0 105 18 111/73 96 Room Air 98.1 Disposition: AGAINST MEDICAL ADVICE Condition: Serious Referrals: NOT CHOSEN [facility]/,REFERRING (PCP) Michaelle Btares Jan 06, 2018 20:37
[2018-01-06] MEDS ORDERED: Vancomycin 500 MG in NS 110 ML IVPB ONE (20:45)
[2018-01-06] MEDS ORDERED: QUEtiapine 200mg tab ORAL SCH (21:00)
[2018-01-06] MEDS ORDERED: NovoLOG Insulin Flexpen SUBQ SCH (21:00)
[2018-01-06] MEDS ORDERED: Tylenol #3 tab (300mg/30mg) ORAL PRN (21:00)
[2018-01-06] MEDS ORDERED: Aztreonam Inj 1 GM in D5W 110 ML IVPB SCH (22:00)
[2018-01-06 22:08] VITALS: BP 111/73
[2018-01-07] MEDS ORDERED: Levothyroxine 25mcg tab ORAL SCH (06:30)
[2018-01-07] MEDS ORDERED: Aspirin Baby 81mg ORAL SCH (09:00)
[2018-01-07] MEDS ORDERED: Furosemide 40mg tab ORAL SCH (09:00)
[2018-01-07] MEDS ORDERED: Heparin 5000 units/ml inj SUBQ SCH (09:00)
[2018-01-07] MEDS ORDERED: Benazepril 10mg tab ORAL SCH (09:00)
--- NOTE | 2018-01-07 09:54 | Diagnostic Imaging Report ---
Indication: Pain Comparison: None Findings: 3 views of the right foot were obtained. There is a ovoid lucency at the medial end of the stump of patient has had prior amputation at the level of the mid foot. There is no periostitis or obvious erosion. The bones are osteopenic diffusely. IMPRESSION: No plain film evidence for osteomyelitis at the stump. Consider MRI
--- NOTE | 2018-01-07 09:55 | Diagnostic Imaging Report ---
Indication: Cellulitis and pain left foot Comparison: None Findings: 3 views of the left foot were obtained. Transmetatarsal indication the left foot noted. There is soft tissues edema perhaps. There is no soft tissue air or evidence of osteomyelitis on this study. Probable small ulceration noted. IMPRESSION: No evidence of osteomyelitis by plain film
== END 2018-01-06 22:08 | disposition left against medical advice (07) ==
LOC: EDBEDREQ 18:49 → EMR 18:50
DX: E11.621 Type 2 diabetes mellitus with foot ulcer (principal); L97.528 Non-pressure chronic ulcer of other part of left foot with other specified severity; L97.518 Non-pressure chronic ulcer of other part of right foot with other specified severity; I48.91 Unspecified atrial fibrillation; I10 Essential (primary) hypertension; E11.9 Type 2 diabetes mellitus without complications; J44.9 Chronic obstructive pulmonary disease, unspecified; F20.9 Schizophrenia, unspecified
CPT/HCPCS: 36415; 73630; 80053; 82550; 83605; 84484; 85025; 87040; 93005; 96374; 96375; 99284; J3370

== ENCOUNTER 2018-01-26 12:50 | Emergency (ER) | payer MEDICARE, OTHER ==
[~2018-01-26] VITALS: Ht 182.9 cm; Wt 95.7 kg
[2018-01-26 13:10] VITALS: BP 138/73
[2018-01-26] MEDS ORDERED: Ketorolac 30mg Inj IV ONE (13:30)
[2018-01-26 14:45] LABS: APPEARANCE,URINE CLEAR; BILIRUBIN, URINE NEGATIVE (NEGATIVE); COLOR,URINE PALE YELLOW; GLUCOSE, URINE (UA) NEGATIVE (NEGATIVE); KETONES,URINE NEGATIVE (NEGATIVE); LEUKOCYTE ESTERASE ,URINE NEGATIVE (NEGATIVE); NITRITE,URINE NEGATIVE (NEGATIVE); PH,URINE 6 (4.5-8.0); PROTEIN,URINE 1+ (NEGATIVE); UROBILINOGEN,URINE NORMAL MG/DL (0.0-1.0)
--- NOTE | 2018-01-26 15:52 | Emergency Room Report ---
History of Present Illness General Chief Complaint: Pain Source: Patient Present Illness HPI The patient presents with severe pain in his feet. He has diabetic ulcers of both of his feet. He feels the pain is so severe he wants to come off his feet. He is not taking taking any gabapentin at this time. He does take [place] 7.5. Denies fever, chills. There is no drainage from his feet. He's followed by wound consultants. He states he feel like he wants to cut off his feet, the pain is so severe. Rated 10/10, constant with worsening in the morning. Has wheelchair. Difficulty transferring due to pain. He's been admitted to the hospital in the past. His last visit here on January 06 he was admitted to the hospital however he left AGAINST MEDICAL ADVICE. The reason for his leaving is unknown. The patient is still smoking. "Smoker's cough" non-productive. Some wheezing. No chest pain. He is depressed over the pain but denies SI. He is not taking antidepressants but is taking antipsychotics. No change in urine or bowels. No calf pain or swelling, no hemoptysis. On oral medications for diabetes. H/O atrial fibrillation. On aspirin. H/O HTN. Allergies: Coded Allergies: HALOPERIDOL (Verified Allergy, Intermediate, rash, 03/21/17) HALOPERIDOL LACTATE (Verified Allergy, Intermediate, rash, 03/21/17) MORPHINE (Verified Allergy, Intermediate, rash, 03/21/17) CEFTRIAXONE (Unverified Adverse Reaction, Unknown, 03/21/17) Pt stated having seizures Patient History Past Medical History: see triage record Past Surgical History: other - toe amputations bilaterally Social History: Reports: smoking Social History Narrative at home Reviewed Nursing Documentation: PMH: Agreed; PSxH: Agreed Nursing Documentation-PM Hx Cardiac Problems: Yes Hx Hypertension: Yes Hx Pacemaker: No Hx Asthma: No Hx COPD: Yes Hx Diabetes: Yes Hx Cancer: No Hx Gastrointestinal Problems: Yes Hx Dialysis: No Hx Neurological Problems: No Hx Cerebrovascular Accident: No Hx Seizures: No Review of Systems All Other Systems: negative except mentioned in HPI Physical Exam Vital Signs Date Time Temp Pulse Resp B/P (MAP) Pulse Ox O2 Delivery O2 Flow Rate FiO2 01/26/18 13:00 97.4 80 14 138/73 97 Room Air 97.3 Sp02 EP Interpretation: reviewed, normal General Appearance: well appearing, no apparent distress, GCS 15, other - tobacco smell Head: normocephalic Eyes: bilateral eye normal inspection, bilateral eye PERRL - small ENT: moist mucus membranes Neck: supple Respiratory: lungs clear, normal breath sounds Cardiovascular #1: irregularly irregular Cardiovascular #2: 2+ radial (R), 2+ dorsalis pedis (R), 2+ dorsalis pedis (L) Gastrointestinal: normal inspection, normal bowel sounds, non tender, no mass, non-distended, overweight Musculoskeletal: back normal, normal range of motion, swelling, other - bilateral amputations of toes Neurologic: alert, oriented x3, grossly normal Psychiatric: depressed affect Skin: normal inspection, warm/dry, other - 3 cm diameter bilateral deep ulcers ball of foot areas. No drainage. Minimal erythema. Medical Decision Making Diagnostic Impression: Primary Impression: Intractable foot pain Additional Impressions: Diabetic foot ulcer Qualified Codes: E11.621 - Type 2 diabetes mellitus with foot ulcer; L97.502 - Non-pressure chronic ulcer of other part of unspecified foot with fat layer exposed A-fib Qualified Codes: I48.2 - Chronic atrial fibrillation ER Course Patient presents to ED with severe foot pain bilaterally. DDX: diabetic neuropathy, foot ulcer pain, cellulitis, ASPVD amongst others. Based on exam, lesions do not appear infected. Patient taking pain medicine at home. Evaluation with labs, EKG and CXR. Had recent x-rays 01/06 and was to be admitted , then patient signed out AMA. Pain will be treated with toradol. Xray of L foot without osteomyelitis. EKG with a fib. CXR slightly large cor. Labs difficult to obtain. Some improvement with Toradol, however still c/o severe pain. Due to continued severe pain, patient admitted to hospital. Patient signed out to Dr. Puga before labs returned. EKG Diagnostic Results Rate: tachycardiac Rhythm: other - a fib ST Segments: no acute changes Rhythm Strip Diag. Results EP Interpretation: yes Rhythm: no PVC's, no ectopy, other - a fib Chest X-Ray Diagnostic Results Chest X-Ray Diagnostic Results : Chest X-Ray Ordered: Yes # of Views/Limited/Complete: 1 View Indication: Other EP Interpretation: Yes Interpretation: no consolidation, no effusion, no pneumothorax, other - COPD Impression: Other Electronically Signed by: Erick Patel MD Last Vital Signs Date Time Temp Pulse Resp B/P (MAP) Pulse Ox O2 Delivery O2 Flow Rate FiO2 01/26/18 14:00 97.3 01/26/18 13:10 14 138/73 97 Room Air 01/26/18 13:00 80 Status: improved Disposition: ADMITTED INPATIENT Condition: Serious Scripts Gabapentin* (GABAPENTIN*) 300 Mg Capsule 300 MG ORAL THREE TIMES A DAY, #30 CAP 0 Refills Prov: Douglas Puga MD 01/26/18 Ibuprofen* (MOTRIN*) 600 Mg Tablet 600 MG ORAL Q8H PRN for For Pain, #30 TAB 0 Refills Prov: Douglas Puga MD 01/26/18 Referrals: NON PHYSICIAN (PCP) Erick Patel M.D. Jan 26, 2018 15:52
[2018-01-26 16:00] VITALS: BP 130/70
[2018-01-26 16:46] LABS: BASOPHILS % (AUTO) 1.5 % (0.0-2.0); EOSINOPHILS % (AUTO) 4.7 % (0.0-3.0); HEMOGLOBIN 14.8 G/DL (14.2-18.0); LYMPHOCYTES % (AUTO) 34.9 % (20.0-45.0); MEAN CORPUSCULAR VOLUME 89 FL (80-99); MONOCYTES % (AUTO) 8.3 % (1.0-10.0); NEUTROPHILS % (AUTO) 50.7 % (45.0-75.0); PLATELET COUNT 171 K/UL (150-450); RED BLOOD COUNT 4.93 M/UL (4.70-6.10); RED CELL DISTRIBUTION WIDTH 12.7 % (11.6-14.8); WHITE BLOOD COUNT 7.4 K/UL (4.8-10.8)
[2018-01-26 16:48] LABS: ANION GAP 5 mmol/L (5-15); BLOOD UREA NITROGEN 28 mg/dL (7-18); CALCIUM 8.9 MG/DL (8.5-10.1); CARBON DIOXIDE 32 MMOL/L (21-32); CHLORIDE 103 MMOL/L (98-107); CREATININE 1.2 MG/DL (0.55-1.30); POTASSIUM 4.5 MMOL/L (3.5-5.1); SODIUM 140 MMOL/L (136-145)
[2018-01-26 16:53] LABS: ALANINE AMINOTRANSFERASE 20 U/L (12-78); ALBUMIN 3.4 G/DL (3.4-5.0); ALBUMIN/GLOBULIN RATIO 0.8 (1.0-2.7); ALKALINE PHOSPHATASE 92 U/L (46-116); ASPARTATE AMINO TRANSFERASE 15 U/L (15-37); BILIRUBIN,TOTAL 0.7 MG/DL (0.2-1.0); CREATINE KINASE 30 U/L (26-308)
[2018-01-26] MEDS ORDERED: IBUPROFEN600 MG ORAL (17:55)
[2018-01-26] MEDS ORDERED: GABAPENTIN300 MG ORAL (17:55)
[2018-01-26 18:00] VITALS: BP 128/72
--- NOTE | 2018-01-26 18:23 | Emergency Room Report ---
Physical Exam Vital Signs Date Time Temp Pulse Resp B/P (MAP) Pulse Ox O2 Delivery O2 Flow Rate FiO2 01/26/18 13:00 97.4 80 14 138/73 97 Room Air 97.3 Medical Decision Making Diagnostic Impression: Primary Impression: Diabetic foot ulcers Qualified Codes: E13.621 - Other specified diabetes mellitus with foot ulcer; L97.509 - Non-pressure chronic ulcer of other part of unspecified foot with unspecified severity ER Course Hospital Course 67-year-old male presents to ED complaining of pain to both feet. History of foot ulcer Clinical course Patient signed out to me by Dr. Patel. See his note for full history and physical Patient complained of intractable pain to both feet. Decision was made to admit the patient. Labs drawn Labsno leukocytosis, hemoglobin/hematocrit stable, electrolytes okay Patient was to be admitted. However on reassessment patient states he wishes to be discharged. Does not want to "take up a bed". Patient has stable vitals , afebrile. No leukocytosis or signs of sepsis I believe patient can be safely discharged to home. Patient will be discharged on ibuprofen and gabapentin Diagnosis - diabetic foot ulcer stable and discharged to home with prescription for Rx motrin, gabapentin. Instructed to followup with PMD. Instructed return to ED if symptoms recur or worsen Labs Test 01/26/18 14:15 01/26/18 16:15 Urine Color Pale yellow Urine Appearance Clear Urine pH 6 (4.5-8.0) Urine Specific [place] 1.010 (1.005-1.035) Urine Protein 1+ (NEGATIVE) Urine Glucose (UA) Negative (NEGATIVE) Urine Ketones Negative (NEGATIVE) Urine Occult Blood Negative (NEGATIVE) Urine Nitrite Negative (NEGATIVE) Urine Bilirubin Negative (NEGATIVE) Urine Urobilinogen Normal MG/DL (0.0-1.0) Urine Leukocyte Esterase Negative (NEGATIVE) Urine RBC 0 /HPF (0 - 0) Urine WBC 0-2 /HPF (0 - 0) Urine Squamous Epithelial Cells Occasional /LPF Urine Bacteria Occasional /HPF (NONE) Urine Hyaline Casts 0-2 /LPF (NONE) White Blood Count 7.4 K/UL (4.8-10.8) Red Blood Count 4.93 M/UL (4.70-6.10) Hemoglobin 14.8 G/DL (14.2-18.0) Hematocrit 44.0 % (42.0-52.0) Mean Corpuscular Volume 89 FL (80-99) Mean Corpuscular Hemoglobin 30.0 PG (27.0-31.0) Mean Corpuscular Hemoglobin Concent 33.6 G/DL (32.0-36.0) Red Cell Distribution Width 12.7 % (11.6-14.8) Platelet Count 171 K/UL (150-450) Mean Platelet Volume 7.3 FL (6.5-10.1) Neutrophils (%) (Auto) 50.7 % (45.0-75.0) Lymphocytes (%) (Auto) 34.9 % (20.0-45.0) Monocytes (%) (Auto) 8.3 % (1.0-10.0) Eosinophils (%) (Auto) 4.7 % (0.0-3.0) Basophils (%) (Auto) 1.5 % (0.0-2.0) Prothrombin Time 10.0 SEC (9.30-11.50) Prothromb Time International Ratio 1.0 (0.9-1.1) Activated Partial Thromboplast Time 31 SEC (23-33) Sodium Level 140 MMOL/L (136-145) Potassium Level 4.5 MMOL/L (3.5-5.1) Chloride Level 103 MMOL/L (98-107) Carbon Dioxide Level 32 MMOL/L (21-32) Anion Gap 5 mmol/L (5-15) Blood Urea Nitrogen 28 mg/dL (7-18) Creatinine 1.2 MG/DL (0.55-1.30) Estimat Glomerular Filtration Rate > 60 mL/min (>60) Glucose Level 149 MG/DL (74-106) Lactic Acid Level 1.80 mmol/L (0.66-2.22) Calcium Level 8.9 MG/DL (8.5-10.1) Total Bilirubin 0.7 MG/DL (0.2-1.0) Aspartate Amino Transf (AST/SGOT) 15 U/L (15-37) Alanine Aminotransferase (ALT/SGPT) 20 U/L (12-78) Alkaline Phosphatase 92 U/L (46-116) Total Creatine Kinase 30 U/L (26-308) Troponin I 0.000 ng/mL (0.000-0.056) Total Protein 7.7 G/DL (6.4-8.2) Albumin 3.4 G/DL (3.4-5.0) Globulin 4.3 g/dL Albumin/Globulin Ratio 0.8 (1.0-2.7) Last Vital Signs Date Time Temp Pulse Resp B/P (MAP) Pulse Ox O2 Delivery O2 Flow Rate FiO2 01/26/18 18:00 97.5 89 20 128/72 100 Room Air 97.3 Disposition: HOME, SELF-CARE Condition: Stable Scripts Gabapentin* (GABAPENTIN*) 300 Mg Capsule 300 MG ORAL THREE TIMES A DAY, #30 CAP 0 Refills Prov: Douglas Puga MD 01/26/18 Ibuprofen* (MOTRIN*) 600 Mg Tablet 600 MG ORAL Q8H PRN for For Pain, #30 TAB 0 Refills Prov: Douglas Puga MD 01/26/18 Referrals: NON PHYSICIAN (PCP) Patient Instructions: Diabetes and Foot Care Douglas Puga MD Jan 26, 2018 18:23
--- NOTE | 2018-01-27 11:19 | Diagnostic Imaging Report ---
Indication: Dyspnea Comparison: 08/03/2017 A single view chest radiograph was obtained. Findings: The upper lobes are slightly hyperlucent. Reticular densities are prominent within the lungs. Heart size is normal. Bones are slightly osteopenic. IMPRESSION: COPD. No change
== END 2018-01-26 18:00 | disposition home or self-care (01) ==
LOC: EMR 14:07 → EDBEDREQ 16:06 → CANBEDREQ 17:52 → EMR 18:00
DX: E11.621 Type 2 diabetes mellitus with foot ulcer (principal); L97.529 Non-pressure chronic ulcer of other part of left foot with unspecified severity; L97.519 Non-pressure chronic ulcer of other part of right foot with unspecified severity; I48.91 Unspecified atrial fibrillation; I10 Essential (primary) hypertension; J44.9 Chronic obstructive pulmonary disease, unspecified; Z79.82 Long term (current) use of aspirin; Z88.8 Allergy status to other drugs, medicaments and biological substances; Z88.1 Allergy status to other antibiotic agents; Z88.5 Allergy status to narcotic agent
CPT/HCPCS: 36415; 71045; 80053; 81003; 82550; 83605; 84484; 85025; 85610; 85730; 93005; 96374; 99284; J1885

== ENCOUNTER → 2018-01-31 | Emergency (ER) | payer MEDICARE, OTHER ==
[~2018-01-31] MED LIST changes: +GABAPENTIN300 MG ORAL
--- NOTE | 2018-01-31 21:47 | Emergency Room Report ---
History of Present Illness General Chief Complaint: To Be Triaged Present Illness Allergies: Coded Allergies: HALOPERIDOL (Verified Allergy, Intermediate, rash, 03/21/17) HALOPERIDOL LACTATE (Verified Allergy, Intermediate, rash, 03/21/17) MORPHINE (Verified Allergy, Intermediate, rash, 03/21/17) CEFTRIAXONE (Unverified Adverse Reaction, Unknown, 03/21/17) Pt stated having seizures Nursing Documentation-PMH Hx Cardiac Problems: Yes Hx Hypertension: Yes Hx Pacemaker: No Hx Asthma: No Hx COPD: Yes Hx Diabetes: Yes Hx Cancer: No Hx Gastrointestinal Problems: Yes Hx Dialysis: No Hx Neurological Problems: No Hx Cerebrovascular Accident: No Hx Seizures: No Medical Decision Making Diagnostic Impression: Primary Impression: Patient left without being seen ER Course Patient left without being seen Status: unchanged Disposition: LEFT W/OUT BEING SEEN Condition: Stable Referrals: NOT CHOSEN IPA/,REFERRING (PCP) Douglas Puga MD January 31, 2018 21:47
== END | disposition left against medical advice (07) ==
LOC: EMR 15:52
DX: M79.673 Pain in unspecified foot (principal); Z53.21 Procedure and treatment not carried out due to patient leaving prior to being seen by health care provider
CPT/HCPCS: 99281

== ENCOUNTER 2018-02-01 17:36 | Emergency (ER) | payer MEDICARE, OTHER ==
[~2018-02-01] VITALS: Ht 188 cm; Wt 95.7 kg
--- NOTE | 2018-02-01 18:06 | Emergency Room Report ---
History of Present Illness General Chief Complaint: General Complaint Source: Patient, Medical Record Present Illness HPI 67-year-old male patient presents the ER requesting lab results from being seen in ER 2 days ago. Patient reports that he had a MRSA test performed on like to know the results of the tests. Patient denies any new or worsening of symptoms. Patient reports history of diabetic foot ulcers, history of amputation of toes bilaterally, reports history of foot pain, mobilized with wheelchair. Denies fever, chest pain, shortness of breath. Allergies: Coded Allergies: HALOPERIDOL (Verified Allergy, Intermediate, rash, 03/21/17) HALOPERIDOL LACTATE (Verified Allergy, Intermediate, rash, 03/21/17) MORPHINE (Verified Allergy, Intermediate, rash, 03/21/17) CEFTRIAXONE (Unverified Adverse Reaction, Unknown, 03/21/17) Pt stated having seizures Patient History Past Medical History: see triage record Reviewed Nursing Documentation: PMH: Agreed; PSxH: Agreed Nursing Documentation-PMH Past Medical History: No History, Except For Hx Cardiac Problems: Yes Hx Hypertension: Yes Hx Pacemaker: No Hx Asthma: No Hx COPD: Yes Hx Diabetes: Yes Hx Cancer: No Hx Gastrointestinal Problems: Yes Hx Dialysis: No Hx Neurological Problems: No Hx Cerebrovascular Accident: No Hx Seizures: No Review of Systems All Other Systems: negative except mentioned in HPI Physical Exam Vital Signs Date Time Temp Pulse Resp B/P (MAP) Pulse Ox O2 Delivery O2 Flow Rate FiO2 02/01/18 17:58 98.4 99 16 93/61 95 Room Air 98.4 Sp02 EP Interpretation: reviewed, normal General Appearance: well appearing, no apparent distress, alert, GCS 15, non- toxic Head: normocephalic, atraumatic ENT: hearing grossly normal, normal pharynx, no angioedema, normal voice, uvula midline, moist mucus membranes Neck: full range of motion Respiratory: lungs clear, normal breath sounds, no rhonchi, no respiratory distress, no accessory muscle use, no wheezing, speaking full sentences Cardiovascular #1: regular rate, rhythm, no edema Psychiatric: mood/affect normal Medical Decision Making PA Attestation Dr. Henriquez is my supervising Physician whom patient management has been discussed with. Diagnostic Impression: Primary Impression: Encounter for other general examination Additional Impression: Hx of diabetic foot ulcer ER Course Pt. presents to the ED requesting results of MRSA screen from last week. Multiple differentials considered. Vital signs: are WNL, pt. is afebrile ER COURSE: Informed patient culture results had been cancelled, no MRSA results to discuss. Patient was not placed on abx at that time. Patient reports feet currently being seen by curriculum and instruction specialist. Patient states feet are currently wrapped and being treated outpatient with wound care. Patient does not want to take off the dressing at this time for evaluation. Patient okay for discharge. patient instructed to continue with curriculum and instruction specialist. Patient instructed to follow up with primary care provider. DISCHARGE: Patient instructed to continue with medications per initial ER provider instructions. At this time pt. is stable for d/c to home. Patient resting comfortably, in no acute distress, nontoxic appearing. Will provide printed patient care instructions and any necessary prescriptions. Care plan and follow up instructions have been discussed with the patient prior to discharge. Patient instructed to follow-up with primary care provider for further treatment and referral. Patient questions asked and answered. ER precautions given. Patient instructed to return to ER immediately for any new or worsening of symptoms including but not limited to fever, worsening of pain symptoms. - Please note that this Emergency Department Report was dictated using [employer] sander technology software, occasionally this can lead to erroneous entry secondary to interpretation by the dictation equipment. Last Vital Signs Date Time Temp Pulse Resp B/P (MAP) Pulse Ox O2 Delivery O2 Flow Rate FiO2 02/01/18 17:58 98.4 99 16 93/61 95 Room Air 98.4 Disposition: HOME, SELF-CARE Condition: Stable Patient Instructions: Diabetes and Foot Care Additional Instructions: Followup with primary care provider in 3 -5 days. Followup with wound care. Patient questions asked and answered. ER precautions given, patient instructed to return to ER immediately for any new or worsening of symptoms. Roberto Carlos Lobo February 01, 2018 18:06
[2018-02-01 18:13] VITALS: BP 93/61
[2018-02-01 18:25] VITALS: BP 93/61
== END 2018-02-01 18:45 | disposition home or self-care (01) ==
LOC: EMR 18:42
DX: Z04.8 Encounter for examination and observation for other specified reasons (principal); E11.621 Type 2 diabetes mellitus with foot ulcer; L97.509 Non-pressure chronic ulcer of other part of unspecified foot with unspecified severity; I10 Essential (primary) hypertension; J44.9 Chronic obstructive pulmonary disease, unspecified; Z89.422 Acquired absence of other left toe(s); Z89.421 Acquired absence of other right toe(s); Z88.1 Allergy status to other antibiotic agents; Z88.5 Allergy status to narcotic agent
CPT/HCPCS: 99283

== ENCOUNTER 2018-04-10 14:08 | Emergency (ER) | payer MEDICARE, OTHER ==
[~2018-04-10] VITALS: Ht 190.5 cm; Wt 101.6 kg
[2018-04-10] MEDS ORDERED: CLINDAMYCIN HC300 MG ORAL (15:07)
[2018-04-10] MEDS ORDERED: IBUPROFEN600 MG ORAL (15:07)
--- NOTE | 2018-04-10 18:29 | Emergency Room Report ---
History of Present Illness General Chief Complaint: General Complaint Source: Patient Present Illness HPI 67-year-old male presents to ED for wound to his left foot. History of diabetes with prior amputation. Notes an ulcer to the bottom of his left foot. Has been there for many months. States it is not improving. states his PMD is not helping. Denies any fevers or chills. Denies any discharge. Pain is sharp, 5 out of 10, nonradiating. No other aggravating relieving factors. Denies any other associated symptoms Allergies: Coded Allergies: HALOPERIDOL (Verified Allergy, Intermediate, rash, 03/21/17) HALOPERIDOL LACTATE (Verified Allergy, Intermediate, rash, 03/21/17) MORPHINE (Verified Allergy, Intermediate, rash, 03/21/17) CEFTRIAXONE (Unverified Adverse Reaction, Unknown, 03/21/17) Pt stated having seizures Patient History Past Medical History: DM, AFib, COPD Past Surgical History: none Pertinent Family History: none Social History: Denies: smoking, alcohol use, drug use Immunizations: UTD Reviewed Nursing Documentation: PMH: Agreed; PSxH: Agreed Nursing Documentation-PMH Hx Cardiac Problems: Yes - a-fib Hx Hypertension: Yes Hx Pacemaker: No Hx Asthma: No Hx COPD: Yes Hx Diabetes: Yes Hx Cancer: No Hx Gastrointestinal Problems: Yes Hx Dialysis: No Hx Neurological Problems: No Hx Cerebrovascular Accident: No Hx Seizures: No Review of Systems All Other Systems: negative except mentioned in HPI Physical Exam Vital Signs Date Time Temp Pulse Resp B/P (MAP) Pulse Ox O2 Delivery O2 Flow Rate FiO2 04/10/18 14:13 98.2 113 20 93 Room Air 98.2 Sp02 EP Interpretation: reviewed, normal General Appearance: no apparent distress, alert, GCS 15, non-toxic Head: normocephalic Eyes: bilateral eye normal inspection, bilateral eye PERRL ENT: normal ENT inspection Neck: normal inspection Respiratory: normal inspection Cardiovascular #1: normal inspection Gastrointestinal: normal inspection Rectal: deferred Genitourinary: normal inspection Musculoskeletal: back normal, gait/station normal, normal range of motion, tender - s/p TMA L foot. 2x2cm ulcer to bottom of foot. no drainage or erythema /induration Neurologic: alert, oriented x3, responsive, motor strength/tone normal, sensory intact, speech normal Psychiatric: normal inspection Skin: other - 2x2cm ulcer to bottom of L foot Lymphatic: normal inspection Medical Decision Making Diagnostic Impression: Primary Impression: Diabetic ulcer of left foot Qualified Codes: E13.621 - Other specified diabetes mellitus with foot ulcer; L97.529 - Non-pressure chronic ulcer of other part of left foot with unspecified severity ER Course Hospital Course 67 yo M presents to ED c/o pain L foot. h/o diabete and foot ulcer Differential diagnoses include: Cellulitis, dermatitis, insect bite, abscess Clinical course Patient placed on stretcher. After initial history, physical exam reveals a middle aged male in no acute distress. On exam there is evidence of old TMA to the left foot. There is a proximal with 2 x 2 cm ulcer to the base of the left foot. It appears chronic. No signs of active infection. No discharge. I seen this patient any times in the past and does appear unchanged however is not improving. Wet-to-dry dressing applied. We will discharge on antibiotics and analgesics. I will provide him referrals to podiatry and surgery for wound care. Diagnosis -diabetic ulcer of L foot stable and discharged to home with prescription for clindamycin, motrin. Instructed to followup with surgery/podiatry. Instructed return to ED if symptoms recur or worsen Last Vital Signs Date Time Temp Pulse Resp B/P (MAP) Pulse Ox O2 Delivery O2 Flow Rate FiO2 04/10/18 14:13 98.2 113 20 93 Room Air 98.2 Status: improved Disposition: HOME, SELF-CARE Condition: Stable Scripts Clindamycin Hcl (CLINDAMYCIN HCL) 300 Mg Capsule 300 MG ORAL THREE TIMES A DAY, #21 CAP Prov: Douglas Puga MD 04/10/18 Ibuprofen* (MOTRIN*) 600 Mg Tablet 600 MG ORAL Q8H PRN for For Pain, #30 TAB 0 Refills Prov: Douglas Puga MD 04/10/18 Referrals: Marvin Cabrera BENJAMIN M.D. Patient Instructions: Diabetes and Foot Care Douglas Puga MD Apr 10, 2018 18:29
[2018-04-10 19:39] VITALS: BP 120/80
== END 2018-04-10 15:30 | disposition home or self-care (01) ==
LOC: EMR 15:15
DX: E11.621 Type 2 diabetes mellitus with foot ulcer (principal); L97.529 Non-pressure chronic ulcer of other part of left foot with unspecified severity; I48.91 Unspecified atrial fibrillation; J44.9 Chronic obstructive pulmonary disease, unspecified; I10 Essential (primary) hypertension; Z89.422 Acquired absence of other left toe(s); Z88.6 Allergy status to analgesic agent; Z88.1 Allergy status to other antibiotic agents; Z88.8 Allergy status to other drugs, medicaments and biological substances
CPT/HCPCS: 99284